=== PATIENT | male | born 1950 | race Caucasian/White ===

== ENCOUNTER 2017-05-29 21:12 | Emergency (ER) | payer MEDICAID, MEDICARE, OTHER ==
[2017-05-29 22:10] VITALS: TEMP 98
[2017-05-29] MEDS ORDERED: Sodium Chloride 0.9% 1,000 ML IV ONE (22:10)
[2017-05-29] MEDS ORDERED: Dextrose 50% SYRINGE Inj (50 ml) IVP STA (22:11)
[2017-05-29] MEDS ORDERED: Dextrose 50% SYRINGE Inj (50 ml) ONE (22:12)
[2017-05-29] MEDS ORDERED: Sodium Chloride 0.9% 1,000 ML ONE (22:25)
[2017-05-29 22:26] LABS: BASO # 0.1 K/uL (0.0-0.2); BASO % 0.9 % (0.0-2.0); EOS # 0.1 K/uL (0.0-0.7); EOS % 0.4 % (0.0-4.0); HEMATOCRIT 45.6 % (35.0-51.0); LYMPH # 2.4 K/uL (1.0-4.3); LYMPH % 18.9 % (20.0-40.0); MEAN CELL VOLUME 100.8 fL (80.0-94.0); MEAN CORPUSCULAR HEMOGLOBIN 33.9 pg (27.0-31.0); MEAN CORPUSCULAR HGB CONC 33.6 g/dL (33.0-37.0); MEAN PLATELET VOLUME 8.7 fL (7.2-11.7); MONO # 0.4 K/uL (0.0-0.8); NRBC % 0.1 % (0.0-2.0); RED CELL DISTRIBUTION WIDTH 16.3 % (11.5-14.5); WHITE BLOOD COUNT 12.7 K/uL (4.8-10.8)
[2017-05-29 22:38] LABS: CHLORIDE 98 mmol/L (98-107); SODIUM 147 mmol/L (132-148)
[2017-05-29 22:39] LABS: POTASSIUM 4.4 mmol/L (3.6-5.2)
[2017-05-29 22:41] LABS: ALB/GLOB RATIO 1.2 (1.0-2.1); ALKALINE PHOSPHATASE 150 U/L (38-126); ALT/SGPT 45 U/L (21-72); AST/SGOT 66 U/L (17-59); BILIRUBIN,TOTAL 0.7 mg/dL (0.2-1.3); BLOOD UREA NITROGEN 14 mg/dL (9-20); CALCIUM 8.9 mg/dl (8.6-10.4); CARBON DIOXIDE 26 mmol/L (22-30); GFR AFRICAN-AMERICAN > 60; GLUCOSE,RANDOM 54 mg/dL (75-110); TOTAL PROTEIN 8.1 g/dL (6.3-8.3)
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
[2017-05-30] MEDS ORDERED: Sodium Chloride 0.9% 1,000 ML IV ONE (00:46)
[2017-05-30] MEDS ORDERED: Morphine 4 MG/ML VIAL ONE (01:05)
[2017-05-30] MEDS ORDERED: Sodium Chloride 0.9% 1,000 ML ONE (01:06)
[2017-05-30 02:32] VITALS: BP 143/77; PULSE 108; RESP 14
--- NOTE | 2017-05-30 08:30 | RAD ---
HISTORY: epigastric pain COMPARISON: None available. TECHNIQUE: Chest, one view. FINDINGS: LUNGS: No focal consolidation. Please note that chest x-ray has limited sensitivity for the detection of pulmonary masses. PLEURA: No significant pleural effusion identified. No definite pneumothorax . CARDIOVASCULAR: Heart size appears within normal limits. Tortuous aorta. OSSEOUS STRUCTURES: Degenerative changes of the spine. VISUALIZED UPPER ABDOMEN: Unremarkable. OTHER FINDINGS: None. IMPRESSION: No focal consolidation, significant pleural effusion, or definite pneumothorax identified.
--- NOTE | 2017-06-01 17:40 | CARD ---
APPROVED REPORT EKG Measurement Heart [id number] <Conclusion> Sinus tachycardia Possible Left atrial enlargement Borderline ECG
[2017-06-03 17:58] VITALS: O2SAT 98
== END 2017-05-30 03:51 | disposition home or self-care (01) ==
LOC: C.ER 21:12
DX: E11.40 Type 2 diabetes mellitus with diabetic neuropathy, unspecified (principal); F10.20 Alcohol dependence, uncomplicated; R11.2 Nausea with vomiting, unspecified; R10.9 Unspecified abdominal pain
CPT/HCPCS: 72HRC; 99284

== ENCOUNTER 2017-05-30 07:06 | Inpatient (IN) | payer MEDICARE, MEDICAID ==
[2017-05-30 07:10] VITALS: BMI 25.1
[2017-05-30] MEDS ORDERED: Sodium Chloride 0.9% 1,000 ML IV ONE (07:32)
[2017-05-30] MEDS ORDERED: Sodium Chloride 0.9% 1,000 ML ONE (08:22)
[2017-05-30 08:47] LABS: BASO # 0.1 K/uL (0.0-0.2); BASO % 0.8 % (0.0-2.0); EOS % 0.2 % (0.0-4.0); HEMATOCRIT 39.8 % (35.0-51.0); LYMPH # 1.7 K/uL (1.0-4.3); LYMPH % 19.7 % (20.0-40.0); MEAN CELL VOLUME 101.7 fL (80.0-94.0); MEAN CORPUSCULAR HGB CONC 33.5 g/dL (33.0-37.0); MONO # 0.6 K/uL (0.0-0.8); MONO % 6.9 % (0.0-10.0); RED CELL DISTRIBUTION WIDTH 16.8 % (11.5-14.5); WHITE BLOOD COUNT 8.4 K/uL (4.8-10.8)
--- NOTE | 2017-05-30 08:59 | RAD ---
PROCEDURE: Radiographs of the chest and abdomen (obstructive series) HISTORY: Vomiting/pain COMPARISON: Chest x-ray performed 05/29/17 FINDINGS: CHEST: The cardiomediastinal silhouette appears within normal limits of size. Atherosclerotic calcification of the aorta. No focal consolidation, significant pleural effusion, or definite pneumothorax identified. Bilateral 8 mm nodular densities favored to reflect nipple shadows. Please note that chest x-ray has limited sensitivity for the detection of pulmonary masses. Degenerative changes of the spine. ABDOMEN AND PELVIS: Nonspecific bowel gas pattern without findings to suggest obstruction. No definite free air. Degenerative changes of the lumbar spine. IMPRESSION: Nonspecific bowel gas pattern without findings to suggest obstruction. Additional findings as above.
[2017-05-30 09:27] LABS: ALB/GLOB RATIO 1.3 (1.0-2.1); ALKALINE PHOSPHATASE 114 U/L (38-126); ALT/SGPT 37 U/L (21-72); AST/SGOT 50 U/L (17-59); BILIRUBIN,TOTAL 0.7 mg/dL (0.2-1.3); BLOOD UREA NITROGEN 16 mg/dL (9-20); CALCIUM 8.2 mg/dl (8.6-10.4); CARBON DIOXIDE 26 mmol/L (22-30); CHLORIDE 99 mmol/L (98-107); GFR AFRICAN-AMERICAN > 60; GLUCOSE,RANDOM 194 mg/dL (75-110); MAGNESIUM 1.4 mg/dL (1.6-2.3); POTASSIUM 4.9 mmol/L (3.6-5.2); SODIUM 140 mmol/L (132-148); TOTAL PROTEIN 6.7 g/dL (6.3-8.3)
[2017-05-30] MEDS ORDERED: Magnesium Sulfate 1 gm in D5W 1 GM/100 ML BAG IVPB ONE ×2 (09:32→09:44)
[2017-05-30 09:50] LABS: ALCOHOL SERUM < 10 mg/dl (0-10)
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
[2017-05-30] MEDS ORDERED: (Novolin R) Insulin Human Regular 100 units/ml vial ONE ×2 (11:20→17:32)
[2017-05-30] MEDS: (Novolin R) Insulin Human Regular 100 units/ml vial SC SCH ×3 (11:40→22:37)
[2017-05-30] MEDS: Enoxaparin 40 mg Syringe SC SCH (13:26)
[2017-05-30] MEDS ORDERED: Enoxaparin 40 mg Syringe ONE (13:29)
[2017-05-30] MEDS ORDERED: Multivitamin (MVI) 10 ML, Thiamine 100 MG, Folic Acid 1 MG in Sodium Chloride 0.9% 1,00... IV ONE (21:42)
[2017-05-30] MEDS: (Lantus) Insulin Glargine, Recombinant SC SCH (22:38)
[2017-05-31 08:22] LABS: HEMATOCRIT 39.8 % (35.0-51.0); MEAN CELL VOLUME 102.4 fL (80.0-94.0); MEAN CORPUSCULAR HEMOGLOBIN 33.6 pg (27.0-31.0); MEAN CORPUSCULAR HGB CONC 32.8 g/dL (33.0-37.0); MEAN PLATELET VOLUME 8.8 fL (7.2-11.7); RED CELL DISTRIBUTION WIDTH 16.3 % (11.5-14.5); WHITE BLOOD COUNT 6.8 K/uL (4.8-10.8)
[2017-05-31 08:30] LABS: CHLORIDE 98 mmol/L (98-107); POTASSIUM 4.1 mmol/L (3.6-5.2); SODIUM 140 mmol/L (132-148)
[2017-05-31 08:32] LABS: AMYLASE 46 U/L (30-110); GFR AFRICAN-AMERICAN > 60
[2017-05-31 08:33] LABS: ALB/GLOB RATIO 1.1 (1.0-2.1); ALKALINE PHOSPHATASE 123 U/L (38-126); ALT/SGPT 36 U/L (21-72); AST/SGOT 39 U/L (17-59); BILIRUBIN,TOTAL 0.8 mg/dL (0.2-1.3); BLOOD UREA NITROGEN 11 mg/dL (9-20); CALCIUM 8.9 mg/dl (8.6-10.4); CARBON DIOXIDE 32 mmol/L (22-30); GLUCOSE,RANDOM 223 mg/dL (75-110); TOTAL PROTEIN 7.1 g/dL (6.3-8.3)
[2017-05-31] MEDS: Enoxaparin 40 mg Syringe SC SCH (09:19)
[2017-05-31] MEDS: (Novolin R) Insulin Human Regular 100 units/ml vial SC SCH ×4 (09:19→21:11)
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
[2017-05-31] MEDS: Divalproex 250 mg DR Tab PO SCH (17:36)
[2017-05-31] MEDS: (Lantus) Insulin Glargine, Recombinant SC SCH (21:13)
[2017-06-01] MEDS ORDERED: Metoprolol 1 mg/ml Inj IVP ONE (04:12)
[2017-06-01] MEDS: (Novolin R) Insulin Human Regular 100 units/ml vial SC SCH ×4 (08:18→21:49)
--- NOTE | 2017-06-01 08:52 | HP ---
CHIEF COMPLAINT: Epigastric and lower chest wall pain. HISTORY OF PRESENT ILLNESS: This is a 66 years old male, who has history of anxiety and he has a history of alcoholism; according to patient, he has chronic severe peripheral neuropathy from midcalf down to the foot, and according to patient, he has been drinking alcohol in order to prevent the pain and he has been drinking a lot, plus he has been helping his mother who is 93-year-old and as a result of that he developed . He drank and he drank more and then he started having upper abdominal, lower chest wall pain, along with nausea, vomiting and diarrhea. The patient had retching, he had nausea, he had epigastric pain, dull along with burning sensation and he felt generalized weakness, tiredness, anorexia, malaise, and fatigue. His stool is loose, watery, and it is not associated with any bleeding or mucus. The patient denies any history of hematemesis, melena, or hematochezia. The patient denies any cough, sore throat or runny nose. The patient denies any polyuria, polydipsia, or polyphagia. The patient denies any history of trauma, fall, loss of consciousness. There is no history of seizure-like activity. PAST MEDICAL HISTORY: Bipolar disorder, depression, diabetes, hypertension, and hyperlipidemia. SOCIAL HISTORY: Ex-smoker, alcohol user. CURRENT HOME MEDICATIONS: He is on lisinopril, Zofran, insulin 70/30, Lantus, Neurontin, Pepcid, Lipitor, and aspirin. PHYSICAL EXAMINATION GENERAL: An elderly male who is anxious and he is restless. VITAL SIGNS: Blood pressure 149/79, pulse 100, respiratory rate 20, temperature 98.2. SKIN: No bruise. No purpura, no petechiae. HEENT: Atraumatic, normocephalic. Negative pallor. Negative jaundice. Extraocular movements are intact. NECK: Supple. No JVD, no lymph node, no thyromegaly, no carotid bruits. CHEST: Chest wall bilaterally symmetrical expansion. LUNGS: Bilaterally clear. No rales or rhonchi. CVS: S1, S2 regular. No heaves noted. ABDOMEN: Soft, nontender. Bowel sounds are positive. There is epigastric tenderness. RECTAL: Enlarged prostate. No bleeding. EXTREMITIES: No clubbing, cyanosis or edema. MEMORY CARE PROGRAM DIRECTOR: Awake, alert, and oriented x3. Cranial nerve II through XII are normal. Power 5/5 x4, plantars are downgoing. IMPRESSION: 1. Acute alcohol-induced gastritis, rule out underlying colitis. 2. Dehydration. 3. Alcohol withdrawal, delirium tremens. 4. Hypertension. 5. Diabetes. 6. Severe peripheral neuropathy. PLAN: Admit, Ativan, Accu-Cheks, sliding scale, blood pressure control, and counseling. Gray Cole MD
[2017-06-01] MEDS: Enoxaparin 40 mg Syringe SC SCH (09:04)
[2017-06-01] MEDS: Divalproex 250 mg DR Tab PO SCH ×2 (09:04→17:56)
--- NOTE | 2017-06-01 15:52 | CP.PCM.PN ---
Subjective - Date & Time of Evaluation Date of Evaluation: 06/04/17 Time of Evaluation: 17:34 - Subjective Subjective: PT TO GO TO PSYCH FOR DETOX ONCE MEDICALLY CLEARED. SBP STILL ELEVATED. DR. QUINTANA AWARE AND WILL INCREASE LISINPRIL. TO BE RE-EVAL'D TOMORROW FOR POSS TRANSFER TO PSYCH.. NO FURTHER ORDERS. Objective - Vital Signs/Intake and Output Vital Signs (last 24 hours): Temp Pulse Resp BP Pulse Ox 97.6 F 88 18 135/84 97 06/01/17 09:37 06/01/17 12:34 06/01/17 09:37 06/01/17 12:34 06/01/17 09:37 Intake and Output: 06/01/17 06/01/17 06:59 18:59 Intake Total 350 Balance 350 - Medications Medications: Current Medications Aspirin (Aspirin Chewable) 81 mg PO DAILY [facility] Last Admin: 06/01/17 09:04 Dose: 81 mg Chlordiazepoxide (Librium) 25 mg PO Q6 PRN PRN Reason: Symptoms of alcohol withdrawl Divalproex Sodium (Depakote Dr) 250 mg PO BID [facility] Last Admin: 06/01/17 09:04 Dose: 250 mg Enoxaparin Sodium (Lovenox) 40 mg SC DAILY [facility] Last Admin: 06/01/17 09:04 Dose: 40 mg Famotidine (Pepcid) 20 mg IVP Q12 [facility] Last Admin: 06/01/17 09:04 Dose: 20 mg Fluphenazine HCl (Prolixin) 5 mg PO BID [facility] Last Admin: 06/01/17 09:04 Dose: 5 mg Gabapentin (Neurontin) 100 mg PO TID [facility] Last Admin: 06/01/17 13:44 Dose: 100 mg Insulin Glargine (Lantus) 20 unit SC HS [facility] Last Admin: 05/31/17 21:13 Dose: 20 units Insulin Human Regular (Novolin R) 0 unit SC ACHS [facility] PRN Reason: Protocol Last Admin: 06/01/17 12:00 Dose: 4 unit Lisinopril (Zestril) 10 mg PO DAILY [facility] Last Admin: 06/01/17 09:04 Dose: 10 mg Lorazepam (Ativan) 2 mg IVP Q4 PRN PRN Reason: Anxiety Last Admin: 05/31/17 21:02 Dose: 2 mg Ondansetron HCl (Zofran Inj) 4 mg IVP Q4 PRN PRN Reason: Nausea/Vomiting Rosuvastatin Calcium (Crestor) 40 mg PO HS STANISLAV Last Admin: 05/31/17 21:13 Dose: 40 mg - Labs Labs: 05/31/17 08:04 05/31/17 08:04 PT 11.4 SECONDS (9.7-12.2) 05/30/17 08:32 INR 1.0 05/30/17 08:32 APTT 29 SECONDS (21-34) 05/30/17 08:32
--- NOTE | 2017-06-01 18:54 | CARD ---
APPROVED REPORT EKG Measurement Heart [id number] <Conclusion> Sinus tachycardia Otherwise normal ECG
[2017-06-01] MEDS: (Lantus) Insulin Glargine, Recombinant SC SCH (21:48)
[2017-06-02] MEDS ORDERED: Metoprolol 1 mg/ml Inj IVP ONE (00:15)
[2017-06-02] MEDS: (Novolin R) Insulin Human Regular 100 units/ml vial SC SCH ×4 (08:04→21:32)
[2017-06-02] MEDS: Divalproex 250 mg DR Tab PO SCH ×2 (09:13→18:03)
[2017-06-02] MEDS: Enoxaparin 40 mg Syringe SC SCH (09:14)
[2017-06-02] MEDS: (Novolog Mix 70/30) Insulin Aspart/Insulin Aspar 100 units/ml SC SCH ×4 (10:30→18:16)
--- NOTE | 2017-06-02 14:52 | CP.PCM.PN ---
Subjective - Date & Time of Evaluation Date of Evaluation: 06/02/17 Time of Evaluation: 12:00 - Subjective Subjective: Pt seen today awake, alert, c/o weakness, no termors noted bp - stable Objective - Vital Signs/Intake and Output Vital Signs (last 24 hours): Temp Pulse Resp BP Pulse Ox 98.1 F 85 20 149/93 H 97 06/02/17 07:35 06/02/17 14:36 06/02/17 07:35 06/02/17 14:36 06/02/17 07:35 - Medications Medications: Current Medications Aspirin (Aspirin Chewable) 81 mg PO DAILY [facility] Last Admin: 06/02/17 09:13 Dose: 81 mg Chlordiazepoxide (Librium) 25 mg PO Q6 PRN PRN Reason: Symptoms of alcohol withdrawl Divalproex Sodium (Depakote Dr) 250 mg PO BID [facility] Last Admin: 06/02/17 09:13 Dose: 250 mg Enoxaparin Sodium (Lovenox) 40 mg SC DAILY [facility] Last Admin: 06/02/17 09:14 Dose: 40 mg Famotidine (Pepcid) 20 mg IVP Q12 [facility] Last Admin: 06/02/17 09:14 Dose: 20 mg Fluphenazine HCl (Prolixin) 5 mg PO BID [facility] Last Admin: 06/02/17 09:13 Dose: 5 mg Gabapentin (Neurontin) 100 mg PO TID [facility] Last Admin: 06/02/17 13:03 Dose: 100 mg Insulin Aspart (Novolog Mix 70/30 (70/30 Units/Ml)) 10 units SC TID [facility] Last Admin: 06/02/17 13:04 Dose: 10 units Insulin Glargine (Lantus) 20 unit SC HS [facility] Last Admin: 06/01/17 21:48 Dose: 20 units Insulin Human Regular (Novolin R) 0 unit SC ACHS [facility] PRN Reason: Protocol Last Admin: 06/02/17 12:00 Dose: 4 unit Lisinopril (Zestril) 20 mg PO DAILY [facility] Last Admin: 06/02/17 09:13 Dose: 20 mg Lorazepam (Ativan) 2 mg IVP Q4 PRN PRN Reason: Anxiety Last Admin: 06/02/17 13:13 Dose: 2 mg Ondansetron HCl (Zofran Inj) 4 mg IVP Q4 PRN PRN Reason: Nausea/Vomiting Rosuvastatin Calcium (Crestor) 40 mg PO HS STANISLAV Last Admin: 06/01/17 21:48 Dose: 40 mg - Labs Labs: 05/31/17 08:04 05/31/17 08:04 PT 11.4 SECONDS (9.7-12.2) 05/30/17 08:32 INR 1.0 05/30/17 08:32 APTT 29 SECONDS (21-34) 05/30/17 08:32
--- NOTE | 2017-06-02 19:46 | PCM.BM ---
<Keena Major - Last Filed: 06/02/17 19:43> Treatment Plan Problems - Problems identified on initial assessmt Depression Date Initiated: 06/02/17 Time Initiated: 19:43 Assessment reference: NA Status: Active Alcohol Abuse Date Initiated: 06/02/17 Time Initiated: 19:44 Assessment reference: NA Status: Active Treatment assets and liabiliti Patient Assests: cooperative, ADL independent (need assistance), cognitively intact Patient Liabilities: live alone (lived with mother), financial problems, poor support system, substance abuse (Hx of Alcohol ) - Milieu Protocol Maintain good personal hygiene: daily Encourage regular showers, daily Remind patient to perform daily oral care, daily Assist patient to perform ADL's Conduct patient checks and document Observation sheet: Q15 minutes (Safety) Maintain personal safety: every shift Educate patient to report safety concerns to staff, every shift Monitor environment for contraband/sharps Medication safety: Monitor for expected outcome, potential side effects: every shift, Assess barriers to learning: every shift, Assess readiness for medication education: every shift Milieu Narrative: Bipolar Disorder Depakote Prolixin Alcohol withdrawal Patient to be transferred to psych floor Ativan Taper Discharge/Continuing Care - Treatment Team Participation Patient/Family/SO Statement: Bipolar Disorder Depakote Prolixin Alcohol withdrawal Patient to be transferred to psych floor Ativan Taper <Maria Antonia Waterman - Last Filed: 06/04/17 11:10> Family Contact Family involvement: Family/SO is involved Family contact: Patient declines to allow family contact at present - Goals for Treatment Patient goals for treatment: "I want to feel better." Discharge/Continuing Care - Education Needs Education Needs: Patient Medication, Patient Coping Skills, Patient Community resources - Discharge Discharge Criteria: Tolerates medication w/o severe side effects, No longer exhibiting s/s of withdrawal, Reduction of target symptoms Discharge to:: Home, With Family - Treatment Team Participation Discussed with Family/SO: No Was Patient/Family/SO present at Treatment Team Meeting: Yes <Kaela Robles - Last Filed: 06/04/17 11:16> - Diagnosis (1) Bipolar disorder Status: Acute Interventions: 06/04/17 11:15 * Assess/adjust medications daily and /or as needed * See patient on an individual basis 7x/week to assess level of manic behaviors and stability * Discuss risks, benefits, side effects and alternatives of medications * (2) Alcohol dependence Status: Acute Interventions: 06/04/17 11:16 * Assess 7x/week regarding severity of withdrawal * Educate regarding risks, benefits, side effects and alternatives of medications * Use Motivational Interviewing for abstinence * Use CBT for relapse prevention * Medication management for withdrawal symptoms * Encourage medication assisted treatment *
[2017-06-02] MEDS: (Lantus) Insulin Glargine, Recombinant SC SCH (21:31)
--- NOTE | 2017-06-02 23:05 | PCM.PYCHPN ---
Psychiatric Progress Note - Psychiatric Progress Note Patient seen today, length of contact: 15 min Patient Chief Complaint: I'm still feeling depressed Problems Identified/Issues Discussed: Patient seen and evaluated, chart reviewed and discussed with the nurse. Patient remained depressed and isolated. Patient appears paranoid and reports depressed mood and feelings of hopelessness and helplessness. He reports of auditory hallucinations and persecutory delusions. He is taking medication and denies any side effects. He needs more time for stabilization. Supportive therapy and psychoeducation were given. Medication Change: Yes (Increase Haldol) Medical Record Reviewed: Yes Mental Status Examination - Cognitive Function Orientation: Person, Place, Situation, Time Memory: Intact Attention: WNL Concentration: Poor Association: Loose Fund of Knowledge: Poor - Mood Mood: Depressed, Anxious - Affect Affect: Flat - Speech Speech: Soft - Formal Thought Process Formal Thought Process: Hallucinations, Delusions, Paranoia, Loosening of associations - Suicidal Ideation Suicidal Ideation: No - Homicidal Ideation Homicidal Ideation: No Goal/Treatment Plan - Goal/Treatment Plan Need for Continued Stay: Discharge may exacerbated symptoms, Severe functional impairment Progress Toward Problem(s) and Goals/Treatment Plan: Bipolar disorder mixed severe with psychotic features CBT Pscychoeducaiton Supportive therapy, group therapy Depakote 250 mg PO BID Prolixin 5 mg PO daily at bedtime Gabapentin 100mg PO TID Zoloft 20 mg daily Alcohol use disorder Alcohol withdrawal CBT Pscychoeducaiton Ativan Taper - Smoking Cessation Smoking Cessation Initiated: No
[2017-06-03] MEDS: (Novolin R) Insulin Human Regular 100 units/ml vial SC SCH ×4 (07:54→21:31)
[2017-06-03] MEDS: Divalproex 250 mg DR Tab PO SCH ×2 (10:15→17:50)
[2017-06-03] MEDS: Enoxaparin 40 mg Syringe SC SCH (10:15)
[2017-06-03] MEDS: (Novolog Mix 70/30) Insulin Aspart/Insulin Aspar 100 units/ml SC SCH ×3 (10:15→17:50)
--- NOTE | 2017-06-03 13:47 | PCM.PYCHPN ---
Psychiatric Progress Note - Psychiatric Progress Note Patient seen today, length of contact: 15 min Patient Chief Complaint: I ma feeling depressed.' Problems Identified/Issues Discussed: Patient seen and evaluated, chart reviewed and discussed with the nurse. As per the staff, Patient remained isolated, depressed and withdrawn. Patient appears paranoid and delusional. He reports depressed mood and feelings of hopelessness and helplessness. He reports of auditory hallucinations and persecutory delusions. He is taking medication and denies any side effects. He needs more time for stabilization. Supportive therapy and psychoeducation were given. Medication Change: Yes Medical Record Reviewed: Yes Mental Status Examination - Cognitive Function Orientation: Person, Place, Situation, Time Memory: Intact Attention: WNL Concentration: Poor Association: Loose Fund of Knowledge: Poor - Mood Mood: Depressed, Anxious - Affect Affect: Flat - Speech Speech: Soft - Formal Thought Process Formal Thought Process: Hallucinations, Delusions, Paranoia - Suicidal Ideation Suicidal Ideation: No - Homicidal Ideation Homicidal Ideation: No Goal/Treatment Plan - Goal/Treatment Plan Need for Continued Stay: Discharge may exacerbated symptoms, Severe functional impairment Progress Toward Problem(s) and Goals/Treatment Plan: Bipolar disorder mixed severe with psychotic features CBT Pscychoeducaiton Supportive therapy, group therapy Depakote 250 mg PO BID Prolixin 5 mg PO daily at bedtime Gabapentin 100mg PO TID Zoloft 20 mg daily Alcohol use disorder Alcohol withdrawal CBT Pscychoeducaiton Ativan Taper - Smoking Cessation Smoking Cessation Initiated: No
[2017-06-03] MEDS: (Lantus) Insulin Glargine, Recombinant SC SCH (21:29)
[2017-06-04] MEDS: (Novolin R) Insulin Human Regular 100 units/ml vial SC SCH ×5 (08:25→21:57)
[2017-06-04] MEDS: (Novolog Mix 70/30) Insulin Aspart/Insulin Aspar 100 units/ml SC SCH ×3 (09:37→18:23)
[2017-06-04] MEDS: Enoxaparin 40 mg Syringe SC SCH (09:43)
[2017-06-04] MEDS: Divalproex 250 mg DR Tab PO SCH ×2 (09:45→18:47)
[2017-06-04] MEDS ORDERED: Pneumococcal 23-Valent Vaccine IM ONE (10:00)
--- NOTE | 2017-06-04 10:01 | PCM.PYCHPN ---
Psychiatric Progress Note - Psychiatric Progress Note Patient seen today, length of contact: 15 min Patient Chief Complaint: I am feeling little better Problems Identified/Issues Discussed: Patient seen and evaluated, chart reviewed and discussed with the nurse. Patient remained isolated, depressed and withdrawn. Patient still appears paranoid and delusional. He reports depressed mood and auditory hallucinations. He is taking medication and denies any side effects. He needs more time for stabilization. Supportive therapy and psychoeducation were given. Medication Change: Yes (increase depakote ) Medical Record Reviewed: Yes Mental Status Examination - Cognitive Function Orientation: Person, Place, Situation, Time Memory: Intact Attention: WNL Concentration: Poor Association: WNL Fund of Knowledge: WNL - Mood Mood: Depressed, Anxious - Affect Affect: Flat - Speech Speech: Soft - Formal Thought Process Formal Thought Process: Hallucinations, Delusions - Suicidal Ideation Suicidal Ideation: No - Homicidal Ideation Homicidal Ideation: No Goal/Treatment Plan - Goal/Treatment Plan Need for Continued Stay: Discharge may exacerbated symptoms, Severe functional impairment Progress Toward Problem(s) and Goals/Treatment Plan: Bipolar disorder mixed severe with psychotic features CBT Pscychoeducaiton Supportive therapy, group therapy Increase Depakote 500 mg PO BID Prolixin 5 mg PO BID D/C Gabapentin 100mg PO TID Start Zoloft 50 mg PO Daily Alcohol use disorder Alcohol withdrawal CBT Pscychoeducaiton Ativan Taper - Smoking Cessation Smoking Cessation Initiated: No
[2017-06-04] MEDS: (Lantus) Insulin Glargine, Recombinant SC SCH (21:36)
[2017-06-05] MEDS: (Novolin R) Insulin Human Regular 100 units/ml vial SC SCH ×5 (06:17→21:26)
[2017-06-05] MEDS: Divalproex 250 mg DR Tab PO SCH ×2 (10:03→18:22)
[2017-06-05] MEDS: Enoxaparin 40 mg Syringe SC SCH (10:03)
[2017-06-05] MEDS: (Novolog Mix 70/30) Insulin Aspart/Insulin Aspar 100 units/ml SC SCH ×3 (10:05→18:21)
--- NOTE | 2017-06-05 10:43 | PCM.PYCHPN ---
Psychiatric Progress Note - Psychiatric Progress Note Patient seen today, length of contact: 15 min Patient Chief Complaint: I am feeling little better.' Problems Identified/Issues Discussed: Patient seen and evaluated, chart reviewed and discussed with the nurse. Patient still appears paranoid and delusional. He reports depressed mood and auditory hallucinations. He is taking medication and denies any side effects. He needs more time for stabilization. Supportive therapy and psychoeducation were given. Medication Change: Yes (increase depakote ) Medical Record Reviewed: Yes Mental Status Examination - Cognitive Function Orientation: Person, Place, Situation, Time Memory: Intact Attention: WNL Concentration: Poor Association: WNL Fund of Knowledge: WNL - Mood Mood: Depressed, Anxious - Affect Affect: Flat - Speech Speech: Soft - Formal Thought Process Formal Thought Process: Hallucinations, Delusions - Suicidal Ideation Suicidal Ideation: No - Homicidal Ideation Homicidal Ideation: No Goal/Treatment Plan - Goal/Treatment Plan Need for Continued Stay: Discharge may exacerbated symptoms, Severe functional impairment Progress Toward Problem(s) and Goals/Treatment Plan: Bipolar disorder mixed severe with psychotic features CBT Pscychoeducaiton Supportive therapy, group therapy Increase Depakote 500 mg PO BID Prolixin 5 mg PO BID D/C Gabapentin 100mg PO TID Start Zoloft 50 mg PO Daily Alcohol use disorder Alcohol withdrawal CBT Pscychoeducaiton Ativan Taper
[2017-06-05] MEDS: (Lantus) Insulin Glargine, Recombinant SC SCH (21:46)
[2017-06-06] MEDS: (Novolin R) Insulin Human Regular 100 units/ml vial SC SCH ×4 (08:20→21:18)
[2017-06-06] MEDS: Enoxaparin 40 mg Syringe SC SCH (09:15)
[2017-06-06] MEDS: (Novolog Mix 70/30) Insulin Aspart/Insulin Aspar 100 units/ml SC SCH ×3 (09:15→17:15)
[2017-06-06] MEDS: Divalproex 250 mg DR Tab PO SCH ×2 (09:17→21:24)
--- NOTE | 2017-06-06 11:46 | PCM.PYCHPN ---
Psychiatric Progress Note - Psychiatric Progress Note Patient seen today, length of contact: 15 min Patient Chief Complaint: Still feeling depressed Problems Identified/Issues Discussed: Patient seen and evaluated, chart reviewed and discussed with the nurse. Patient appeared more organized but remained depressed and isolated. Patient still appears paranoid and reports depressed mood and at times feelings of hopelessness and helplessness. He remained isolated and withdrawn. His taking medication and denies any side effects. He needs more time for stabilization. Supportive therapy and psychoeducation were given. Medication Change: Yes (Reduce depakote, increase zoloft) Medical Record Reviewed: Yes Mental Status Examination - Cognitive Function Orientation: Person, Place, Situation, Time Memory: Intact Attention: WNL Concentration: Poor Association: WNL Fund of Knowledge: WNL - Mood Mood: Depressed, Anxious - Affect Affect: Flat - Speech Speech: Soft - Formal Thought Process Formal Thought Process: Hallucinations, Delusions - Suicidal Ideation Suicidal Ideation: No - Homicidal Ideation Homicidal Ideation: No Goal/Treatment Plan - Goal/Treatment Plan Need for Continued Stay: Discharge may exacerbated symptoms, Severe functional impairment Progress Toward Problem(s) and Goals/Treatment Plan: Bipolar disorder mixed severe with psychotic features CBT Pscychoeducaiton Supportive therapy, group therapy Decrease Depakote to 500 mg PO qHS Change Prolixin to 10 mg PO QHS Zoloft 100 mg PO Daily Alcohol use disorder Alcohol withdrawal CBT Pscychoeducaiton D/C Ativan Taper - Smoking Cessation Smoking Cessation Initiated: No
[2017-06-06] MEDS: (Lantus) Insulin Glargine, Recombinant SC SCH (21:25)
[2017-06-07] MEDS: (Novolin R) Insulin Human Regular 100 units/ml vial SC SCH ×4 (07:38→21:42)
[2017-06-07 08:16] VITALS: O2SAT 99
[2017-06-07] MEDS: (Novolog Mix 70/30) Insulin Aspart/Insulin Aspar 100 units/ml SC SCH ×3 (09:19→17:19)
[2017-06-07] MEDS: Enoxaparin 40 mg Syringe SC SCH (09:22)
--- NOTE | 2017-06-07 16:26 | PCM.PYCHPN ---
Psychiatric Progress Note - Psychiatric Progress Note Patient seen today, length of contact: 15 min Patient Chief Complaint: I'm still feeling depressed Problems Identified/Issues Discussed: Patient seen and evaluated, chart reviewed and discussed with the nurse. Patient appeared more organized, and reports being able to get up, eat breakfast , make his bed and wash himself today. Patient remained depressed and isolated. Patient still appears paranoid and reports hearing voices and having visual hallucinations. Reports depressed mood with feelings of hopelessness, irritability, agitation, decreased interest in regular activities, guilt, decreased energy, decreased concentration, an improved appetite, no restlessness , no suicidal or homicidal ideation. Reports withdrawal symptoms of headache at present, but denies nausea, vomiting, diarrhea, sweats, or racing thoughts at present. Reports left calf pain which he states may be attributed to his chronic neuropathy. He needs more time for stabilization. Supportive therapy and psychoeducation were given. Medication Change: Yes (Increase Haldol) Medical Record Reviewed: Yes Mental Status Examination - Cognitive Function Orientation: Person, Place, Situation, Time Memory: Intact Attention: WNL Concentration: Poor Association: Loose Fund of Knowledge: Poor - Mood Mood: Depressed, Anxious - Affect Affect: Flat - Speech Speech: Soft - Formal Thought Process Formal Thought Process: Hallucinations, Delusions, Paranoia, Loosening of associations - Suicidal Ideation Suicidal Ideation: No - Homicidal Ideation Homicidal Ideation: No Goal/Treatment Plan - Goal/Treatment Plan Need for Continued Stay: Discharge may exacerbated symptoms, Severe functional impairment Progress Toward Problem(s) and Goals/Treatment Plan: Bipolar disorder mixed severe with psychotic features CBT Pscychoeducaiton Supportive therapy, group therapy Depakote 250 mg PO BID Prolixin 5 mg PO daily at bedtime Gabapentin 100mg PO TID Zoloft 20 mg daily Alcohol use disorder Alcohol withdrawal CBT Pscychoeducaiton Ativan Taper
[2017-06-07] MEDS: Divalproex 250 mg DR Tab PO SCH (21:32)
[2017-06-07] MEDS: (Lantus) Insulin Glargine, Recombinant SC SCH (21:34)
[2017-06-08] MEDS: (Novolin R) Insulin Human Regular 100 units/ml vial SC SCH ×4 (08:38→21:32)
[2017-06-08] MEDS: (Novolog Mix 70/30) Insulin Aspart/Insulin Aspar 100 units/ml SC SCH ×3 (09:39→17:53)
--- NOTE | 2017-06-08 11:34 | PCM.PYCHPN ---
Psychiatric Progress Note - Psychiatric Progress Note Patient seen today, length of contact: 15 min Patient Chief Complaint: I'm still feeling depressed Problems Identified/Issues Discussed: Patient seen and evaluated, chart reviewed and discussed with the nurse. Patient states that he is "feeling okay." He reports persistent feelings of hopelessness and helplessness, and states that he was very frustrated and agitated today because showering and getting dressed this morning was an "ordeal." Patient denies feelings of anxiety or nervousness. Patient was previously having visual and auditory hallucinations, as well as feeling watched and followed, but states that all of those symptoms have subsided today. Denies feeling like this thoughts are being broadcast. Regarding withdrawal symptoms, patient reports persistent headache and pain in his entire left arm. He denies nausea, vomiting, diarrhea, sweats or heart racing. He needs more time for stabilization. Supportive therapy and psychoeducation were given. Medication Change: Yes (Increase Haldol) Medical Record Reviewed: Yes Mental Status Examination - Cognitive Function Orientation: Person, Place, Situation, Time Memory: Intact Attention: WNL Concentration: Poor Association: Loose Fund of Knowledge: Poor - Mood Mood: Depressed, Anxious - Affect Affect: Flat - Speech Speech: Soft - Formal Thought Process Formal Thought Process: Hallucinations, Delusions, Loosening of associations - Suicidal Ideation Suicidal Ideation: No - Homicidal Ideation Homicidal Ideation: No Goal/Treatment Plan - Goal/Treatment Plan Need for Continued Stay: Discharge may exacerbated symptoms, Severe functional impairment Progress Toward Problem(s) and Goals/Treatment Plan: Bipolar disorder mixed severe with psychotic features CBT Pscychoeducaiton Supportive therapy, group therapy Depakote 250 mg PO BID Prolixin 5 mg PO daily at bedtime Gabapentin 100mg PO TID Zoloft 20 mg daily Alcohol use disorder Alcohol withdrawal CBT Pscychoeducaiton Ativan Taper - Smoking Cessation Smoking Cessation Initiated: No
[2017-06-08] MEDS: (Lantus) Insulin Glargine, Recombinant SC SCH (21:38)
[2017-06-08] MEDS: Divalproex 250 mg DR Tab PO SCH (21:38)
[2017-06-09] MEDS: (Novolin R) Insulin Human Regular 100 units/ml vial SC SCH ×4 (08:41→21:02)
[2017-06-09] MEDS: (Novolog Mix 70/30) Insulin Aspart/Insulin Aspar 100 units/ml SC SCH ×3 (10:20→17:57)
--- NOTE | 2017-06-09 10:51 | PCM.PYCHPN ---
Psychiatric Progress Note - Psychiatric Progress Note Patient seen today, length of contact: 15 min Patient Chief Complaint: I'm still feeling little better' Problems Identified/Issues Discussed: Patient seen and evaluated, chart reviewed and discussed with the nurse. Today patient reports improvement in his mood but still reports feelings of hopelessness and helplessness because of his living situation. He reports improvement in the visual and auditory hallucinations, as well as persecutory delusions. He reports improvement in his withdrawal symptoms, but still reports persistent headache and pain in his entire left arm. He denies nausea, vomiting, diarrhea, sweats or heart racing. He needs more time for stabilization. Supportive therapy and psychoeducation were given. Medication Change: Yes (d/c depakote, restart neurontin) Medical Record Reviewed: Yes Mental Status Examination - Cognitive Function Orientation: Person, Place, Situation, Time Memory: Intact Attention: WNL Concentration: Poor Association: WNL Fund of Knowledge: Poor - Mood Mood: Depressed, Anxious - Affect Affect: Flat - Speech Speech: Soft - Formal Thought Process Formal Thought Process: Paranoia - Suicidal Ideation Suicidal Ideation: No - Homicidal Ideation Homicidal Ideation: No Goal/Treatment Plan - Goal/Treatment Plan Need for Continued Stay: Discharge may exacerbated symptoms, Severe functional impairment Progress Toward Problem(s) and Goals/Treatment Plan: Bipolar disorder mixed severe with psychotic features CBT Pscychoeducaiton Supportive therapy, group therapy d/c Depakote 500 mg PO QHS Prolixin 10 mg PO daily at bedtime Start Gabapentin 300 mg PO BID Zoloft 100 mg daily Alcohol use disorder Alcohol withdrawal CBT Pscychoeducaiton d/c Ativan Taper HTN Continue prescribed medications - Smoking Cessation Smoking Cessation Initiated: No
[2017-06-09] MEDS: (Lantus) Insulin Glargine, Recombinant SC SCH (21:12)
[2017-06-09] MEDS: Divalproex 250 mg DR Tab PO SCH (21:13)
[2017-06-10 07:44] VITALS: BP 161/94; PULSE 81; RESP 20; TEMP 96
[2017-06-10] MEDS: (Novolin R) Insulin Human Regular 100 units/ml vial SC SCH (08:28)
--- NOTE | 2017-06-10 09:24 | PCM.PYCHDC ---
Mental Status Examination - Mental Status Examination Orientation: Person, Place, Situation, Time Memory: Intact Mood: Depressed, Anxious Affect: Constricted, Depressed Speech: Appropriate, Soft Attention: WNL Concentration: WNL Association: WNL Fund of Knowledge: WNL Formal Thought Process: No Impairment Suicidal Ideation: No Current Homicidal Ideation?: No Discharge Summary - Discharge Note Reason for Hospitalization: Patient has longstanding history of depression and alcohol use disorder Psychiatric History (includes Medical, Family, Personal Hx): Psych History: depression, anxiety, Detox x 3, Rehab x 4 (last in 2010) Laboratory Data: Abnormal Lab Results 06/09/17 06/09/17 06/09/17 11:44 16:03 20:09 POC Glucose (mg/dL) 206 H 147 H 142 H 06/10/17 08:01 POC Glucose (mg/dL) 142 H Consultations:: List each consultation separately and include: 1. Reason for request. 2. Findings. 3. Follow-up Summary of Hospital Course include:: 1. Description of specific treatment plan utilized for patients during their course of treatmen. 2. Summarize the time- course for resolution of acute symptoms and/or regressed behaviors. 3. Describe issues identified and worked on during hospitalization. 4. Describe medication utilized. 5. Describe medical problems identified and treated. 6. Reassessment of suicide risk Summary of Hospital Course: The patient was admitted and started on treatment with psychotherapy, support, psychoeducation and medications. CO and CBT used. The patient attended groups and activities, as well as milieu therapy. All the risks and benefits of medications are discussed and the patient understood and agreed. The patient improved with the treatments provided. At present, he only complains of a headache, but states he has not tried any medicine for it. Denies tremors or cravings for alcohol. He feels confident that he won't relapse after discharge as long as he can follow-up with an outpatient facility. Reports no visual or auditory hallucinations, no paranoia, no suicidal ideation and no homocidal ideation. - Final Diagnosis (DSM 5) Condition upon Discharge: IMPROVED DSM 5: Bipolar disorder mixed with severe psychotic features alcohol use disorder alcohol withdrawal anxiety disorder Disposition: HOME/ ROUTINE Follow-up Treatment Plan: Continue below medications after discharge. Follow after care plan as discussed. Use relapse prevention skills. Return to ER or call 911 if suicidal, homicidal or symptoms relapse. Stay away from stress, alcohol and drugs. See primary doctor once a year. Prescriptions/Medication Reconciliation: Aspirin [Aspirin Chewable] 81 mg PO DAILY #30 Divalproex [Depakote DR] 500 mg PO HS #30 tcp fluPHENAZine [Prolixin] 10 mg PO HS #30 tab Gabapentin [Neurontin] 300 mg PO BID #60 cap Lisinopril [Zestril] 20 mg PO DAILY #30 tab Sertraline [Zoloft] 200 mg PO DAILY #60 tab
[2017-06-10] MEDS: (Novolog Mix 70/30) Insulin Aspart/Insulin Aspar 100 units/ml SC SCH (10:16)
== END 2017-06-10 11:00 | disposition home or self-care (01) | DRG 895 ==
LOC: C.ER 07:06 → C.9E 10:11 → C.6T 19:06 → C.5E 06-02 19:17
PROVIDERS: ADMIT Psychiatry & Neurology Psychiatry; ATTEND Psychiatry & Neurology Psychiatry
PROC: HZ2ZZZZ Detoxification Services for Substance Abuse Treatment (ICD-10-PCS; principal; 2017-06-01)
PROC: HZ52ZZZ Individual Psychotherapy for Substance Abuse Treatment, Cognitive-Behavioral (ICD-10-PCS; 2017-06-01)
PROC: HZ42ZZZ Group Counseling for Substance Abuse Treatment, Cognitive-Behavioral (ICD-10-PCS; 2017-06-01)
PROC: HZ59ZZZ Individual Psychotherapy for Substance Abuse Treatment, Supportive (ICD-10-PCS; 2017-06-01)
PROC: HZ56ZZZ Individual Psychotherapy for Substance Abuse Treatment, Psychoeducation (ICD-10-PCS; 2017-06-01)
PROC: HZ46ZZZ Group Counseling for Substance Abuse Treatment, Psychoeducation (ICD-10-PCS; 2017-06-01)
DX: F10.231 Alcohol dependence with withdrawal delirium (principal); E11.40 Type 2 diabetes mellitus with diabetic neuropathy, unspecified; F31.64 Bipolar disorder, current episode mixed, severe, with psychotic features; K29.20 Alcoholic gastritis without bleeding; F41.9 Anxiety disorder, unspecified; Y90.0 Blood alcohol level of less than 20 mg/100 ml; Z87.891 Personal history of nicotine dependence; Z79.4 Long term (current) use of insulin; E86.0 Dehydration; I10 Essential (primary) hypertension